=== PATIENT | female | born 1985 | race Caucasian/White ===

== ENCOUNTER 2024-01-19 13:05 | Outpatient (CLI) | payer OTHER ==
[~2024-01-19 13:05] MED LIST: AMPICILLIN TRI500 MG PO; DOLOGESIC CAPLE1 TAB PO
== END 2024-01-19 13:12 | disposition home or self-care (01) ==
LOC: SONOGRAMA 13:05
PROVIDERS: ATTEND Physical Medicine & Rehabilitation
DX: S66.021A Laceration of long flexor muscle, fascia and tendon of right thumb at wrist and hand level, initial encounter (principal)